=== PATIENT | female | born 1990 ===

== ENCOUNTER → 2017-10-15 18:05 | Outpatient (CLI) | payer OTHER ==
[~2017-10-15 18:05] MED LIST: AMOX1TAB12 PO; BENADRYL25 MG PO; CEFTIN500 MG PO; PRENATABS RX TA1 TAB; PROMETRIUM200 MG PO; ZYRTEC10 M3 PO
== END | disposition home or self-care (01) ==
LOC: LAB 18:05
DX: R50.9 Fever, unspecified (principal)

== ENCOUNTER 2019-01-17 06:50 | Emergency (ER) | payer OTHER ==
[~2019-01-17] VITALS: Ht 167.6 cm; Wt 68.0 kg
[2019-01-17] MEDS ORDERED: PEPCID AC20 MG PO (13:14)
[2019-01-17] MEDS ORDERED: KETO10TA2 PO (13:14)
[2019-01-17] MEDS ORDERED: LEVSIN/SL0.125 MG SL (13:14)
[2019-01-17] MEDS ORDERED: CEFADROXIL500 MG PO (13:23)
== END 2019-01-17 13:15 | disposition home or self-care (01) ==
LOC: ER 06:50
DX: N20.0 Calculus of kidney (principal); R10.13 Epigastric pain; R10.32 Left lower quadrant pain

== ENCOUNTER → 2019-02-08 08:39 | Outpatient (CLI) | payer OTHER ==
[~2019-02-08 08:39] MED LIST changes: +CEFADROXIL500 MG PO; +KETO10TA2 PO; +LEVSIN/SL0.125 MG SL; +PEPCID AC20 MG PO
== END | disposition home or self-care (01) ==
LOC: LAB 08:39
DX: J11.1 Influenza due to unidentified influenza virus with other respiratory manifestations (principal); J11.89 Influenza due to unidentified influenza virus with other manifestations

== ENCOUNTER 2019-05-07 15:49 | Outpatient (CLI) | payer OTHER | END 2019-05-07 15:55 | disposition home or self-care (01) | LOC: LAB 15:49 | DX: R39.15 Urgency of urination (principal); N76.0 Acute vaginitis; R53.81 Other malaise; J11.1 Influenza due to unidentified influenza virus with other respiratory manifestations ==

== ENCOUNTER 2020-01-16 20:14 | Inpatient (IN) | payer OTHER ==
[~2020-01-16] VITALS: Ht 170.2 cm; Wt 88.5 kg
[2020-01-19] MEDS ORDERED: HYOSCYAMINE0.125 M1 SL (10:59)
== END 2020-01-19 13:10 | disposition home or self-care (01) | DRG 384 ==
LOC: ER 20:14 → SURH 01-17 10:09
PROVIDERS: ADMIT Colon & Rectal Surgery
PROC: BW21Y0Z Computerized Tomography (CT Scan) of Abdomen and Pelvis using Other Contrast, Unenhanced and Enhanced (ICD-10-PCS; 2020-01-17)
PROC: 0DBB8ZX Excision of Ileum, Via Natural or Artificial Opening Endoscopic, Diagnostic (ICD-10-PCS; principal; 2020-01-18)
PROC: 0DBN8ZX Excision of Sigmoid Colon, Via Natural or Artificial Opening Endoscopic, Diagnostic (ICD-10-PCS; 2020-01-18)
PROC: 0DB98ZX Excision of Duodenum, Via Natural or Artificial Opening Endoscopic, Diagnostic (ICD-10-PCS; 2020-01-18)
PROC: 0DB78ZX Excision of Stomach, Pylorus, Via Natural or Artificial Opening Endoscopic, Diagnostic (ICD-10-PCS; 2020-01-18)
DX: K25.3 Acute gastric ulcer without hemorrhage or perforation (principal); K92.1 Melena; E86.0 Dehydration; E87.8 Other disorders of electrolyte and fluid balance, not elsewhere classified

== ENCOUNTER 2021-03-31 19:45 | Emergency (ER) | payer OTHER ==
[~2021-03-31] VITALS: Ht 170.2 cm; Wt 90.7 kg
[~2021-03-31 19:45] MED LIST changes: +HYOSCYAMINE0.125 M1 SL
[2021-04-01] MEDS ORDERED: LEVSIN/SL0.125 MG SL (06:43)
[2021-04-01] MEDS ORDERED: CEPHALEXIN500 M1 PO (06:43)
[2021-04-01] MEDS ORDERED: INTESTINEX680 M1 PO (06:43)
[2021-04-01] MEDS ORDERED: ZOFRAN8 MG PO (06:43)
== END 2021-04-01 06:55 | disposition home or self-care (01) ==
LOC: ER 19:45
DX: K52.9 Noninfective gastroenteritis and colitis, unspecified (principal); N20.0 Calculus of kidney; N39.0 Urinary tract infection, site not specified

== ENCOUNTER 2021-05-18 06:00 | Day surgery (SDC) | payer OTHER ==
[~2021-05-18 06:00] MED LIST changes: +CEPHALEXIN500 M1 PO; +INTESTINEX680 M1 PO; +ZOFRAN8 MG PO
== END 2021-05-18 13:05 | disposition home or self-care (01) ==
LOC: CIR.AMB 06:00
PROVIDERS: ATTEND Urology
DX: N20.1 Calculus of ureter (principal); Z20.822 Contact with and (suspected) exposure to COVID-19

== ENCOUNTER 2021-05-22 19:18 | Inpatient (IN) | payer OTHER ==
[~2021-05-22] VITALS: Ht 170.2 cm; Wt 89.4 kg
--- NOTE | 2021-05-22 19:56 | NUR ---
SE RECIBE PTE ALERTA Y ORIENTADA X 3 ESFERAS LA CUAL INDICA QUE MARIN LE REMOVIO UN DOUBLE J EL ARTIE DE HOY. REFIERE QUE DESDE LA TARDE DE HOY COMENZO CON MUCHO DOLOR PELVICO. INDICA QUE DESDE QUE LE REMOVIERON EL DOUBLE J NO MURRIETA ORINADO MUCHO.
--- NOTE | 2021-05-22 21:26 | NUR ---
EVALUA PTE. SE EDUCA A PTE SOBRE TX MEDICO. PTE REFIERE COMPRENDER. SE REALIZAN MUESTRAS DE LABORATORIO BAJO MEDIDAS ASEPTICAS. SE ADMINISTRAN MEDICAMENTOS TOMÁS ORDEN MEDICA. SE NOTIFICA CT. PTE MANEJADA POR .
--- NOTE | 2021-05-22 22:14 | NUR ---
SE LE ORIENTA A PTE SOBRE MEDICAMENTO Y MUESTRA A SEGUIR, MIKAELA REFIERE ENTENDER. SE ADMINISTRA MEDICAMENTO. PENDIENTE U/C Y U/A
== END 2021-05-23 13:14 | disposition home or self-care (01) | DRG 694 ==
LOC: ER 19:18 → SURH 23:08
PROVIDERS: ADMIT Urology; ATTEND Urology
PROC: BW21ZZZ Computerized Tomography (CT Scan) of Abdomen and Pelvis (ICD-10-PCS; principal; 2021-05-23)
DX: N20.1 Calculus of ureter (principal); N39.0 Urinary tract infection, site not specified; Z20.822 Contact with and (suspected) exposure to COVID-19; E86.0 Dehydration; E87.8 Other disorders of electrolyte and fluid balance, not elsewhere classified; R10.9 Unspecified abdominal pain

== ENCOUNTER → 2025-04-17 07:19 | Outpatient (CLI) | payer OTHER | END | disposition home or self-care (01) | LOC: PRENATAL 07:19 | PROVIDERS: ATTEND Obstetrics & Gynecology Maternal & Fetal Medicine | DX: O44.00 Complete placenta previa NOS or without hemorrhage, unspecified trimester (principal); Z3A.20 20 weeks gestation of pregnancy ==

== ENCOUNTER → 2025-07-17 14:23 | Outpatient (CLI) | payer OTHER | END | disposition home or self-care (01) | LOC: PRENATAL 14:23 | PROVIDERS: ATTEND Obstetrics & Gynecology Maternal & Fetal Medicine | DX: O26.843 Uterine size-date discrepancy, third trimester (principal); O36.8130 Decreased fetal movements, third trimester, not applicable or unspecified; Z3A.34 34 weeks gestation of pregnancy ==